=== PATIENT | male | born 1990 | race Hispanic/Latino ===

== ENCOUNTER 2017-02-08 01:37 | Emergency (ER) | payer SELFPAY ==
[~2017-02-08] VITALS: Ht 180.3 cm; Wt 81.8 kg
[2017-02-08 01:41] VITALS: BP 120/76; PULSE 81; RESP 16; O2SAT 99
--- NOTE | 2017-02-08 01:57 | ED.REPORT ---
HPI-Extremity Problem Lower Date of Service Feb 08, 2017 ED Provider: Carlos Partida DO Pt is a 26 year old male who presents to the ED complaining of right knee pain. He c/o associated right knee swelling and rough skin on his knee cap. He reports that he fell down recently, but he does not remember injuring his knee. 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 Nursing Notes Stated Complaint: PAIN IN KNEE Chief Complaint: Extremity Trauma Nursing Notes Reviewed: Yes Allergies: Coded Allergies: No Known Allergies (Unverified , 02/08/17) General Time Seen by MD: 01:56 Chief Complaint Knee injury right Hx Obtained From: Patient Arrived By: Walk-in Onset Occurred: Onset unknown Symptom Duration: Since onset Location: : Knee right Quality: Painful Severity: Current: Moderate Severity: Maximum: Moderate Recent Healthcare: No recent doctor visit, No recent hospitalization Similar Sx Previous: No Past Medical History Past Medical History Denies - healthy Past Surgical History Denies Social History Other Social History: Good social support Ambulatory Status Independent Review of Systems Musculoskeletal: Reports: Joint pain, Joint swelling, Denies: Extremity pain, Extremity swelling Complete sys rev & neg: except as marked. Physical Exam Initial Vital Signs Vital Signs (First) Date Time Temp Pulse Resp B/P Pulse Ox O2 Delivery O2 Flow Rate FiO2 02/08/17 01:41 36.9 81 16 120/76 99 Room Air Initial VS: Reviewed Head / Eyes: Atraumatic, Normocephalic Neck: Supple, Full range of motion Respiratory: Breath sounds normal, Clear to auscultation, No respiratory distress Cardiovascular: Regular rate & rhythm, Heart sounds normal, Intact distal pulses Abdomen / GI: Soft, Non-tender Upper Extremities: Vascular intact, Neuro intact Skin: Warm, Dry, No cyanosis Neurologic: Alert, Oriented, Nonfocal Psychiatric: Mood/affect normal, Behavior normal Lower Extremity / Pelvis / MS: Full range of motion, Neurologic intact, Vascular intact Cellulitis of right knee. Erythema. Bursa not inflamed. No fluid collection on right knee. Warm. Ankle / Foot: Atraumatic, Full range of motion Interpretation & Diagnostics X-Ray Interpretation Xray Interpretation: Negative X-Ray Ordered: Knee right Interpretation / Wet Read by: Wet read ED physician Re-Eval/Medical Decision Med Decision/Clinical Course Cellulitis of the anterior knee without any evidence of septic arthritis or septic bursitis. He does have a break in the skin where he fell I believe last week. I think this was the nidus of infection. I can take his joints are full range of motion. No limitations or pain. No palpable effusion. I will place him on antibiotics for skin and soft tissue infection, immobilize his knee. Have close outpatient follow-up. I do not feel that arthrocentesis is indicated at this time. Source of Hx: Old records Re-Evaluation/Progress : Time of Eval: 02:39 Re-Evaluation/Progress Note: Pt rechecked. Informed pt of plan for discharge. Pt understands and agrees with plan for discharge. F/U instructions and RTER warnings given. All questions addressed. Counseled Regarding: Diagnosis, Lab results, Need for follow-up, When/why to return to ED Discharge & Departure Impression: Primary Impression: Cellulitis of knee, right Disposition: Home Discharge Condition All VS Reviewed: Yes Condition: Stable Patient Instructions: Cellulitis (ED) Additional Instructions: Your x-ray looked normal. Take Keflex 4x daily for 7 days. Bactrim 2x daily for 7 days. Keep your knee immobilized until the infection clears. Call the referral primary care or orthopedic doctor tomorrow for a follow up appointment this week. Return to the Emergency Department if the redness increases in size or for any new or worsening symptoms. Referrals: [facility] Neal Yan MD Attestation Portions of this note were transcribed by Miriam Ivey. I, Dr. Partida personally performed the history, physical exam and medical decision-making; I reviewed and confirmed the accuracy of the information in the transcribed note. Signed by : Patrica Mcleod, 02/08/17 and 02:30. copies to: [facility]; Neal Yan MD, Todd P DO Feb 08, 2017 01:57 Miriam Mercedes Feb 08, 2017 02:07
[2017-02-08] MEDS ORDERED: Trimethoprim-Sulfa 160 mg-800 mg Tablet PO ONE (02:05)
[2017-02-08 03:02] VITALS: BP 124/80; PULSE 71; RESP 20; O2SAT 98
--- NOTE | 2017-02-08 07:42 | DRSVH ---
PROCEDURE: X-RAY RIGHT KNEE, THREE VIEWS ([id number]) INDICATIONS: right knee pain POST FALL 1 WEEK AGO, cellulitis TECHNIQUE: 3 views of the knee were acquired. COMPARISON: None. FINDINGS: Bones: No fractures or dislocations. No suspicious bony lesions. Soft tissues: No joint effusion. No suspicious soft tissue calcifications. IMPRESSION: No acute fracture. No osseous lesion. If clinical suspicion and/or symptoms persist, fur ther assessment with repeat plainfilms, or advanced imaging (e.g., CT, MRI, or bone scan) may be help ful for further assessment. Dictated by: Meron Yeager M.D. on 02/08/2017 at 7:40 Approved by: Meron Yeager M.D. on 02/08/2017 at 7:40
== END 2017-02-08 03:03 | disposition home or self-care (01) ==
LOC: SED 01:37
DX: L03.115 Cellulitis of right lower limb (principal); W19.XXXA Unspecified fall, initial encounter; Y93.89 Activity, other specified; Y92.009 Unspecified place in unspecified non-institutional (private) residence as the place of occurrence of the external cause; Y99.8 Other external cause status